=== PATIENT | male | born 1940 | race Caucasian/White ===

== ENCOUNTER 2017-11-23 00:51 | Inpatient (IN) | payer MEDICARE, OTHER ==
[~2017-11-23] VITALS: Ht 180.3 cm; Wt 80.3 kg
--- NOTE | 2017-11-23 02:15 | NUR ---
GPS ADMISSION NOTE, RECEIVED PATIENT FROM [facility]OM[facility]. PATIENT ARRIVED ON THIS UNIT AT 0215 VIA STRETCHER WITH 2 EMT ESCORTS. PATIENT ADMITTED VOLUNTARY. PATIENT PRESENTS WITH AUDITORY HALLUCINATIONS AND SUICIDAL IDEATIONS TO [facility]. 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 PATIENT STOPPED HIMSELF FROM DOING IT AND WENT TO E.R. UPON FACE TO FACE ASSESSMENT PATIENT IS CURRENTLY LYING IN BED AWAKE, HAS NO S/S OR COMPLAINTS OF PAIN AT THIS TIME. PATIENT IS DISPLAYING NO S/S OF APPARENT DISTRESS. PATIENT BREATHING IS UNLABORED WITH EQUAL RISE AND FALL OF THE CHEST. PATIENT IS ALERT AND ORIENTATED X 3 ON ROOM AIR. PATIENT ASSISTED WITH TURING AND REPOSITIONING Q2HR AND PRN FOR COMFORT AND CIRCULATION. PATIENT HAS NO NEEDS AT THIS TIME. PATIENT IS NOTED TO BEING CALM, DISHEVELED, DISORGANIZED, COOPERATIVE, AND NEEDS REDIRECTION. PATIENT DENIES SUICIDE IDEATIONS AND HOMICIDAL IDEATIONS AT THIS TIME. PATIENT IS UNDER THE PSYCHIATRIC CARE OF DR. ESCUDERO AND THE MEDICAL CARE OF DR ASHLEIGH Faust. PATIENT BELONGINGS WERE INVENTORIED AND CHECKED FOR CONTRABAND. ALL CONTRABAND REMOVED AND STORED IN PATIENT HALLWAY LOCKER. PATIENT ADVANCED DIRECTIVES PREFERENCE, IMMUNIZATIONS QUESTIONER, NECESSARY PAPERWORK, AND SKIN ASSESSMENT COMPLETED. PATIENT ORIENTATED TO ROOM, FLOOR, AND STAFF WITH ALL QUESTIONS ANSWERED. PATIENT EDUCATED ON THE USE OF THE CALL POP. PATIENT BED SIDE RAILS ARE UP X 2 FOR SAFETY. PATIENT BED IS LOCKED, LOW AND I WILL CONTINUE TO MONITOR THIS PATIENT Q 15 MIN WITH THE HELP OF STAFF TO MAINTAIN SAFETY.
[2017-11-23] MEDS ORDERED: MAGNESIUM HYDROXIDE 30 ML UDC PO PRN (02:30)
[2017-11-23] MEDS ORDERED: MAG HYDROX/AL HYDROX/SIMETH 30 ML UDC PO PRN (02:30)
[2017-11-23] MEDS ORDERED: LORAZEPAM 0.5 MG TABLET PO PRN (02:30)
[2017-11-23] MEDS ORDERED: ACETAMINOPHEN 325 MG TABLET PO PRN (02:30)
[2017-11-23] MEDS ORDERED: CEPH-570 PO (04:02)
[2017-11-23] MEDS ORDERED: CLOP75TA15 PO (04:03)
[2017-11-23] MEDS ORDERED: PHEN-894 PO (04:03)
[2017-11-23] MEDS ORDERED: MIRT15TA PO (04:04)
[2017-11-23] MEDS ORDERED: LISI-603 PO (04:06)
[2017-11-23] MEDS ORDERED: OXYC-133 PO (04:06)
[2017-11-23] MEDS ORDERED: METF-442 PO (04:08)
[2017-11-23] MEDS ORDERED: TAMS0.4C34 PO (04:09)
[2017-11-23] MEDS ORDERED: PANT40TA2 PO (04:10)
[2017-11-23] MEDS ORDERED: BACL10TA PO (04:11)
[2017-11-23] MEDS ORDERED: METO-356 PO (04:11)
[2017-11-23] MEDS ORDERED: INSU100V7 SQ (04:12)
[2017-11-23] MEDS ORDERED: DULO60CA45 PO (04:13)
[2017-11-23] MEDS ORDERED: CHOL200026 PO (04:14)
[2017-11-23] MEDS ORDERED: ATOR40TA PO (04:15)
[2017-11-23] MEDS ORDERED: FINA5TAB11 PO (04:16)
[2017-11-23] MEDS ORDERED: AMLO10TA4 PO (04:17)
[2017-11-23] MEDS ORDERED: DEXTROSE 50%-WATER 50 ML DISP.SYRIN IV PRN (05:00)
[2017-11-23 08:00] VITALS: BP 162/69
[2017-11-23 08:11] LABS: ALANINE AMINOTRANSFERASE 11 U/L (12-78); ALBUMIN 2.7 g/dL (3.4-5.0); ALKALINE PHOSPHATASE 103 U/L (46-116); ASPARTATE AMINOTRANSFERASE 13 U/L (15-37); BILIRUBIN,TOTAL 0.3 mg/dL (0.2-1.0); CALCIUM, SERUM 8.2 mg/dL (8.5-10.1); CARBON DIOXIDE 27 mmol/L (21-32); CHLORIDE 105 mmol/L (98-107); CREATININE 1.1 mg/dL (0.6-1.3); GLUCOSE 235 mg/dL (74-106); POTASSIUM 4.5 mmol/L (3.5-5.1); SODIUM SERUM 138 mmol/L (136-145); TOTAL PROTEIN, SERUM 6.2 g/dL (6.4-8.2); UREA NITROGEN, BLOOD 18 mg/dL (7-18)
[2017-11-23] MEDS: BLOOD SUGAR DIAGNOSTIC 1 EACH STRIP IN SCH ×4 (08:30→22:34)
[2017-11-23] MEDS: NICOTINE PATCH (21MG) 21 MG PATCH.TD24 TD SCH (08:31)
[2017-11-23] MEDS: INSULIN REGULAR, HUMAN 100 UNIT/ML 3 ML VIAL SQ PRN ×4 (08:40→22:36)
[2017-11-23 08:46] LABS: APPEARANCE,URINE CLOUDY (CLEAR); BILIRUBIN,URINE NEGATIVE (NEGATIVE); BLOOD, URINE 1+ Ery/uL (NEGATIVE); COLOR,URINE YELLOW (YELLOW); KETONES,URINE NEGATIVE (NEGATIVE); LEUKOCYTE ESTERASE ,URINE 2+ (NEGATIVE); NITRITE, URINE POSITIVE (NEGATIVE); PROTEIN,URINE 2+ mg/dl (NEGATIVE); UGLUCOSE 2+ mg/dL (NEGATIVE); UROBILINOGEN,URINE 0.2 EU/dL (0.2)
[2017-11-23 08:52] LABS: BACTERIA,URINE Few /HPF (None Seen); SQUAMOUS EPITHELIAL CELL,UR Few /HPF (None Seen); WBC,URINE TOO NUMEROUS TO COUN /HPF (0-3)
[2017-11-23 10:58] LABS: BASOPHILS # (AUTO) 0.1 /CMM (0.0-0.2); BASOPHILS % (AUTO) 0.6 % (0.0-2.0); EOSINOPHILS % (AUTO) 6.2 % (0.0-6.0); HEMATOCRIT 33 % (39-51); HEMOGLOBIN 10.6 g/dL (13.5-17.5); LYMPHOCYTES # (AUTO) 1.4 /CMM (0.8-4.8); LYMPHOCYTES % (AUTO) 17.6 % (20.0-44.0); MEAN CORPUSCULAR HGB CONC 32 g/dl (31.0-36.0); MEAN CORPUSCULAR VOLUME 92 fL (80-96); MONOCYTES # (AUTO) 0.6 /CMM (0.1-1.30); MONOCYTES % (AUTO) 7.1 % (2.0-12.0); NEUTROPHILS # (AUTO) 5.5 /CMM (1.8-8.9); NEUTROPHILS % (AUTO) 68.5 % (43.0-81.0); PLATELET COUNT (AUTO) 388 /CMM (150-450); RED BLOOD CELL COUNT(AUTO) 3.56 MIL/uL (4.5-6.0); WHITE BLOOD COUNT (AUTO) 8.1 K/uL (4.3-11.0)
--- NOTE | 2017-11-23 11:00 | NUR ---
GPS RN NOTE: ALEX WHITE NOTIFIED OF PT LABS, VS ,URINE POSITIVE FOR UTI, TO RECONCILED HOME MEDICATIONS.
[2017-11-23] MEDS: CIPROFLOXACIN HCL 500 MG TABLET PO SCH ×2 (11:29→21:35)
--- NOTE | 2017-11-23 12:56 | NUR ---
INITIAL DISCHARGE PLAN: Patient wishes to be discharged to a SNF. SW will help form a safe and proper discharge in collaboration with pt and MD.
[2017-11-23] MEDS: BENZTROPINE MESYLATE (1 MG) 1 MG TABLET PO SCH ×2 (13:45→16:01)
[2017-11-23] MEDS: risperiDONE 1 MG TABLET PO SCH ×2 (13:45→16:01)
[2017-11-23 16:00] VITALS: BP 140/72
--- NOTE | 2017-11-23 16:50 | NUR ---
GPS RN NOTE: NP. JOHNSON WAS NOTIFIED TO RECONCILED HOME MEDICATIONS WITCH SHE AGREED TO DO I.
--- NOTE | 2017-11-23 18:25 | NUR ---
RN-CO: Notified Danya Barron [employer] to reconcile home medications.
[2017-11-23] MEDS: METFORMIN 500 MG TABLET PO SCH (19:43)
[2017-11-23 19:46] VITALS: BP 157/76
[2017-11-23] MEDS: INSULIN GLARGINE, 100 UNIT/ML CARTRIDGE SQ SCH (22:00)
[2017-11-23 22:30] VITALS: BP 132/74
[2017-11-24 07:21] LABS: BASOPHILS % (AUTO) 0.6 % (0.0-2.0); EOSINOPHILS % (AUTO) 5.6 % (0.0-6.0); HEMATOCRIT 32 % (39-51); HEMOGLOBIN 10.7 g/dL (13.5-17.5); LYMPHOCYTES # (AUTO) 1.3 /CMM (0.8-4.8); LYMPHOCYTES % (AUTO) 17.5 % (20.0-44.0); MEAN CORPUSCULAR HGB CONC 33 g/dl (31.0-36.0); MEAN CORPUSCULAR VOLUME 92 fL (80-96); MONOCYTES # (AUTO) 0.5 /CMM (0.1-1.30); MONOCYTES % (AUTO) 7.1 % (2.0-12.0); NEUTROPHILS % (AUTO) 69.2 % (43.0-81.0); PLATELET COUNT (AUTO) 375 /CMM (150-450); RDW COEFFICIENT OF VARIATION 14.6 (11.5-15.0); WHITE BLOOD COUNT (AUTO) 7.2 K/uL (4.3-11.0)
[2017-11-24 07:30] LABS: CALCIUM, SERUM 8.4 mg/dL (8.5-10.1); CARBON DIOXIDE 29 mmol/L (21-32); CHLORIDE 105 mmol/L (98-107); CREATININE 1.1 mg/dL (0.6-1.3); GLUCOSE 279 mg/dL (74-106); MAGNESIUM 1.7 mg/dL (1.8-2.4); PHOSPHORUS 3.2 mg/dL (2.5-4.9); POTASSIUM 4.6 mmol/L (3.5-5.1); SODIUM SERUM 141 mmol/L (136-145); UREA NITROGEN, BLOOD 16 mg/dL (7-18)
[2017-11-24 07:31] LABS: CHOLESTEROL 175 mg/dL (<200); HDL CHOLESTEROL 39 mg/dL (40-60); LDL 100 mg/dL (0-99); TRIGLYCERIDES 277 mg/dL (30-150)
[2017-11-24 08:00] VITALS: BP 144/73
[2017-11-24] MEDS: risperiDONE 1 MG TABLET PO SCH ×2 (08:44→17:13)
[2017-11-24] MEDS: METFORMIN 500 MG TABLET PO SCH ×2 (08:44→17:12)
[2017-11-24] MEDS: PANTOPRAZOLE 40 MG TABLET.DR PO SCH (08:44)
[2017-11-24] MEDS: BENZTROPINE MESYLATE (1 MG) 1 MG TABLET PO SCH ×2 (08:44→17:13)
[2017-11-24] MEDS: INSULIN REGULAR, HUMAN 100 UNIT/ML 3 ML VIAL SQ PRN ×3 (08:44→21:22)
[2017-11-24] MEDS: CIPROFLOXACIN HCL 500 MG TABLET PO SCH ×2 (08:44→20:36)
[2017-11-24] MEDS: NICOTINE PATCH (21MG) 21 MG PATCH.TD24 TD SCH (08:45)
[2017-11-24] MEDS: BLOOD SUGAR DIAGNOSTIC 1 EACH STRIP IN SCH ×4 (08:46→21:17)
[2017-11-24] MEDS: SERTRALINE HCL 25 MG TABLET PO SCH (08:50)
[2017-11-24] MEDS: CHOLECALCIFEROL 1,000 UNIT TABLET (VIT D3) PO SCH (08:51)
[2017-11-24] MEDS: BACLOFEN (10 MG) 10 MG TABLET PO SCH ×3 (08:51→17:12)
[2017-11-24] MEDS: FINASTERIDE (5 MG) 5 MG TABLET PO SCH (08:51)
[2017-11-24] MEDS: LISINOPRIL (20MG) 20 MG TABLET PO SCH (08:51)
[2017-11-24] MEDS: CLOPIDOGREL BISULFATE 75 MG TABLET PO SCH (08:51)
[2017-11-24] MEDS: METOPROLOL SUCCINATE 25 MG TAB.SR.24H PO SCH (08:52)
[2017-11-24] MEDS: AMLODIPINE BESYLATE 10 MG TABLET PO SCH (08:52)
[2017-11-24] MEDS: TAMSULOSIN 0.4 MG CAP.SR.24H PO SCH (09:04)
[2017-11-24] MEDS: ATORVASTATIN 40 MG TABLET PO SCH (09:04)
[2017-11-24] MEDS ORDERED: MAGNESIUM OXIDE 400 MG TABLET PO ONE ×2 (09:30→12:30)
[2017-11-24 16:23] VITALS: BP 101/55
[2017-11-24 20:00] VITALS: BP 115/67
--- NOTE | 2017-11-24 20:35 | NUR ---
OFFERED SLEEPING PILL, TEMAZEPAM 7.5 MG CAP REFUSED.
[2017-11-24] MEDS: TEMAZEPAM 7.5 MG CAPSULE PO PRN (20:36)
--- NOTE | 2017-11-24 20:36 | NUR ---
TEMAZEPAM 7.5 MG CAP 1 PO GIVEN FOR SLEEP. Addendum: 11/25/17 at 0623 by BELKIS LAKE RN PATIENT DID NOT TAKE TEMAZEPAM 7.5 MG. OFFERED 2X. WASTED.
--- NOTE | 2017-11-24 21:18 | NUR ---
ACCUCHECK = 195 MG/DL, 3 UNITS REG. INSULIN SC ADMINISTERED. OFFERED HS SNACKS, ORANGE JUICE AND SANDWICH.
[2017-11-24] MEDS: INSULIN GLARGINE, 100 UNIT/ML CARTRIDGE SQ SCH (22:00)
--- NOTE | 2017-11-24 22:28 | NUR ---
PATIENT REFUSED TO HAVE SNACKS, ACCUCHECK 195 MG/DL, LANTUS 30 UNITS NOT GIVEN.
[2017-11-25 06:44] LABS: CALCIUM, SERUM 8.6 mg/dL (8.5-10.1); CARBON DIOXIDE 28 mmol/L (21-32); CHLORIDE 105 mmol/L (98-107); CREATININE 1.6 mg/dL (0.6-1.3); GLUCOSE 217 mg/dL (74-106); MAGNESIUM 1.8 mg/dL (1.8-2.4); POTASSIUM 4.6 mmol/L (3.5-5.1); SODIUM SERUM 141 mmol/L (136-145); UREA NITROGEN, BLOOD 22 mg/dL (7-18)
[2017-11-25 08:00] VITALS: BP 130/67
[2017-11-25] MEDS: NICOTINE PATCH (21MG) 21 MG PATCH.TD24 TD SCH (09:00)
[2017-11-25] MEDS: BLOOD SUGAR DIAGNOSTIC 1 EACH STRIP IN SCH ×4 (09:27→21:06)
[2017-11-25] MEDS: CLOPIDOGREL BISULFATE 75 MG TABLET PO SCH (09:28)
[2017-11-25] MEDS: CHOLECALCIFEROL 1,000 UNIT TABLET (VIT D3) PO SCH (09:28)
[2017-11-25] MEDS: BENZTROPINE MESYLATE (1 MG) 1 MG TABLET PO SCH ×2 (09:28→18:01)
[2017-11-25] MEDS: FINASTERIDE (5 MG) 5 MG TABLET PO SCH (09:28)
[2017-11-25] MEDS: TAMSULOSIN 0.4 MG CAP.SR.24H PO SCH (09:28)
[2017-11-25] MEDS: ATORVASTATIN 40 MG TABLET PO SCH (09:28)
[2017-11-25] MEDS: BACLOFEN (10 MG) 10 MG TABLET PO SCH ×3 (09:28→18:01)
[2017-11-25] MEDS: AMLODIPINE BESYLATE 10 MG TABLET PO SCH (09:28)
[2017-11-25] MEDS: SERTRALINE HCL 25 MG TABLET PO SCH (09:29)
[2017-11-25] MEDS: PANTOPRAZOLE 40 MG TABLET.DR PO SCH (09:29)
[2017-11-25] MEDS: LISINOPRIL (20MG) 20 MG TABLET PO SCH (09:29)
[2017-11-25] MEDS: CIPROFLOXACIN HCL 500 MG TABLET PO SCH ×2 (09:29→21:06)
[2017-11-25] MEDS: risperiDONE 1 MG TABLET PO SCH ×2 (09:29→18:00)
[2017-11-25] MEDS: METFORMIN 500 MG TABLET PO SCH ×2 (09:33→18:00)
[2017-11-25] MEDS: METOPROLOL SUCCINATE 25 MG TAB.SR.24H PO SCH (09:35)
[2017-11-25] MEDS: INSULIN REGULAR, HUMAN 100 UNIT/ML 3 ML VIAL SQ PRN ×4 (09:39→21:10)
--- NOTE | 2017-11-25 11:53 | NUR ---
AKIKO faxed SNF referral to pricing coordinator Kathe at [facility] Address: [address] [place] [address] for review.
--- NOTE | 2017-11-25 14:29 | NUR ---
skill training program coordinator Meche at [facility] Address: [address] [place] [address] , contacted SW stated pt has been accepted to their facility.
[2017-11-25 15:58] VITALS: BP 121/63
[2017-11-25] MEDS ORDERED: oxyCODONE/APAP (5/325 MG) 1 UDTAB TABLET PO PRN ×2 (17:30)
[2017-11-25] MEDS: GABAPENTIN 300 MG CAPSULE PO SCH (18:02)
[2017-11-25 20:00] VITALS: BP 108/61
--- NOTE | 2017-11-25 21:07 | NUR ---
ACCUCHECK 152 MG/DL,
--- NOTE | 2017-11-25 21:11 | NUR ---
2 UNITS REG. INSULIN SC ADMINISTERED, BLOOD SUGAR OF 152 MG/DL. HS SNACKS GIVEN. APPLE JUICE 180 ML PO.
[2017-11-25] MEDS: INSULIN GLARGINE, 100 UNIT/ML CARTRIDGE SQ SCH (21:14)
--- NOTE | 2017-11-25 21:15 | NUR ---
LANTUS 30 UNITS NOT ADMINISTERED, BLOOD SUGAR = 152 MG/DL. REFUSWED SANDWICH, HAD ORANGE JUICE, DRANK 50 ML ONLY OUT OF 180 ML.
[2017-11-26 08:00] VITALS: BP 104/60
[2017-11-26] MEDS: BLOOD SUGAR DIAGNOSTIC 1 EACH STRIP IN SCH ×4 (08:15→21:07)
[2017-11-26] MEDS: AMLODIPINE BESYLATE 10 MG TABLET PO SCH (09:00)
[2017-11-26] MEDS: METOPROLOL SUCCINATE 25 MG TAB.SR.24H PO SCH (09:00)
[2017-11-26] MEDS: LISINOPRIL (20MG) 20 MG TABLET PO SCH (09:00)
--- NOTE | 2017-11-26 09:00 | NUR ---
INSULIN REFUSED AFTER ACCUCHECK. OFFERED 3 TIMES. PATIENT SAID HE WAS TOO TIRED.
[2017-11-26] MEDS: TAMSULOSIN 0.4 MG CAP.SR.24H PO SCH (09:19)
[2017-11-26] MEDS: SERTRALINE HCL 25 MG TABLET PO SCH (09:19)
[2017-11-26] MEDS: NICOTINE PATCH (21MG) 21 MG PATCH.TD24 TD SCH (09:19)
[2017-11-26] MEDS: PANTOPRAZOLE 40 MG TABLET.DR PO SCH (09:19)
[2017-11-26] MEDS: BENZTROPINE MESYLATE (1 MG) 1 MG TABLET PO SCH ×2 (09:19→17:11)
[2017-11-26] MEDS: ATORVASTATIN 40 MG TABLET PO SCH (09:19)
[2017-11-26] MEDS: FINASTERIDE (5 MG) 5 MG TABLET PO SCH (09:19)
[2017-11-26] MEDS: CLOPIDOGREL BISULFATE 75 MG TABLET PO SCH (09:19)
[2017-11-26] MEDS: GABAPENTIN 300 MG CAPSULE PO SCH ×3 (09:19→17:11)
[2017-11-26] MEDS: risperiDONE 1 MG TABLET PO SCH ×2 (09:19→17:11)
[2017-11-26] MEDS: METFORMIN 500 MG TABLET PO SCH ×2 (09:19→17:11)
[2017-11-26] MEDS: CIPROFLOXACIN HCL 500 MG TABLET PO SCH ×2 (09:19→21:07)
[2017-11-26] MEDS: BACLOFEN (10 MG) 10 MG TABLET PO SCH ×3 (09:19→17:11)
[2017-11-26] MEDS: CHOLECALCIFEROL 1,000 UNIT TABLET (VIT D3) PO SCH (09:20)
[2017-11-26 15:59] VITALS: BP 121/52
[2017-11-26] MEDS: INSULIN REGULAR, HUMAN 100 UNIT/ML 3 ML VIAL SQ PRN ×2 (17:39→21:09)
[2017-11-26 20:00] VITALS: BP 134/68
[2017-11-26] MEDS: TEMAZEPAM 7.5 MG CAPSULE PO PRN (21:07)
[2017-11-26] MEDS: INSULIN GLARGINE, 100 UNIT/ML CARTRIDGE SQ SCH (21:08)
[2017-11-27 08:19] VITALS: BP 120/77
[2017-11-27] MEDS: FINASTERIDE (5 MG) 5 MG TABLET PO SCH (08:54)
[2017-11-27] MEDS: GABAPENTIN 300 MG CAPSULE PO SCH ×3 (08:54→17:52)
[2017-11-27] MEDS: CLOPIDOGREL BISULFATE 75 MG TABLET PO SCH (08:54)
[2017-11-27] MEDS: TAMSULOSIN 0.4 MG CAP.SR.24H PO SCH (08:54)
[2017-11-27] MEDS: BLOOD SUGAR DIAGNOSTIC 1 EACH STRIP IN SCH ×4 (08:54→21:19)
[2017-11-27] MEDS: risperiDONE 1 MG TABLET PO SCH ×2 (08:54→17:52)
[2017-11-27] MEDS: METFORMIN 500 MG TABLET PO SCH ×2 (08:55→17:53)
[2017-11-27] MEDS: CIPROFLOXACIN HCL 500 MG TABLET PO SCH ×2 (08:55→21:22)
[2017-11-27] MEDS: BACLOFEN (10 MG) 10 MG TABLET PO SCH ×3 (08:55→17:52)
[2017-11-27] MEDS: SERTRALINE HCL 25 MG TABLET PO SCH (08:55)
[2017-11-27] MEDS: ATORVASTATIN 40 MG TABLET PO SCH (08:55)
[2017-11-27] MEDS: CHOLECALCIFEROL 1,000 UNIT TABLET (VIT D3) PO SCH (08:55)
[2017-11-27] MEDS: BENZTROPINE MESYLATE (1 MG) 1 MG TABLET PO SCH ×2 (08:55→17:53)
[2017-11-27] MEDS: METOPROLOL SUCCINATE 25 MG TAB.SR.24H PO SCH (08:56)
[2017-11-27] MEDS: NICOTINE PATCH (21MG) 21 MG PATCH.TD24 TD SCH (08:57)
[2017-11-27] MEDS: PANTOPRAZOLE 40 MG TABLET.DR PO SCH (08:57)
[2017-11-27] MEDS: AMLODIPINE BESYLATE 10 MG TABLET PO SCH (08:59)
[2017-11-27 11:07] LABS: BASOPHILS % (AUTO) 0.6 % (0.0-2.0); EOSINOPHILS % (AUTO) 6.2 % (0.0-6.0); HEMATOCRIT 31 % (39-51); HEMOGLOBIN 10.2 g/dL (13.5-17.5); LYMPHOCYTES # (AUTO) 1.4 /CMM (0.8-4.8); LYMPHOCYTES % (AUTO) 21.8 % (20.0-44.0); MEAN CORPUSCULAR HGB CONC 33 g/dl (31.0-36.0); MEAN CORPUSCULAR VOLUME 93 fL (80-96); MONOCYTES # (AUTO) 0.5 /CMM (0.1-1.30); MONOCYTES % (AUTO) 7.5 % (2.0-12.0); NEUTROPHILS # (AUTO) 4.1 /CMM (1.8-8.9); NEUTROPHILS % (AUTO) 63.9 % (43.0-81.0); PLATELET COUNT (AUTO) 337 /CMM (150-450); RED BLOOD CELL COUNT(AUTO) 3.37 MIL/uL (4.5-6.0); WHITE BLOOD COUNT (AUTO) 6.4 K/uL (4.3-11.0)
[2017-11-27 11:12] LABS: CARBON DIOXIDE 27 mmol/L (21-32); CHLORIDE 108 mmol/L (98-107); CREATININE 1.3 mg/dL (0.6-1.3); GLUCOSE 101 mg/dL (74-106); MAGNESIUM 1.8 mg/dL (1.8-2.4); PHOSPHORUS 4.5 mg/dL (2.5-4.9); POTASSIUM 4.8 mmol/L (3.5-5.1); SODIUM SERUM 142 mmol/L (136-145); UREA NITROGEN, BLOOD 33 mg/dL (7-18)
[2017-11-27] MEDS: INSULIN REGULAR, HUMAN 100 UNIT/ML 3 ML VIAL SQ PRN (12:35)
[2017-11-27 16:00] VITALS: BP 117/67
[2017-11-27 20:00] VITALS: BP 133/65
[2017-11-27] MEDS: INSULIN GLARGINE, 100 UNIT/ML CARTRIDGE SQ SCH (21:20)
--- NOTE | 2017-11-27 21:24 | NUR ---
ACCUCHECK 93 MG/DL, NO INSULIN DUE AT THIS TIME. ORANGE JUICE 220 ML PO GIVEN.
[2017-11-28 08:00] VITALS: BP 137/65
[2017-11-28] MEDS: CIPROFLOXACIN HCL 500 MG TABLET PO SCH ×2 (08:23→21:44)
[2017-11-28] MEDS: ATORVASTATIN 40 MG TABLET PO SCH (08:23)
[2017-11-28] MEDS: BACLOFEN (10 MG) 10 MG TABLET PO SCH ×3 (08:23→16:28)
[2017-11-28] MEDS: FINASTERIDE (5 MG) 5 MG TABLET PO SCH (08:23)
[2017-11-28] MEDS: AMLODIPINE BESYLATE 10 MG TABLET PO SCH (08:23)
[2017-11-28] MEDS: TAMSULOSIN 0.4 MG CAP.SR.24H PO SCH (08:23)
[2017-11-28] MEDS: PANTOPRAZOLE 40 MG TABLET.DR PO SCH (08:23)
[2017-11-28] MEDS: risperiDONE 1 MG TABLET PO SCH ×2 (08:23→16:28)
[2017-11-28] MEDS: NICOTINE PATCH (21MG) 21 MG PATCH.TD24 TD SCH (08:23)
[2017-11-28] MEDS: METOPROLOL SUCCINATE 25 MG TAB.SR.24H PO SCH (08:24)
[2017-11-28] MEDS: METFORMIN 500 MG TABLET PO SCH ×2 (08:24→16:28)
[2017-11-28] MEDS: BENZTROPINE MESYLATE (1 MG) 1 MG TABLET PO SCH ×2 (08:24→16:28)
[2017-11-28] MEDS: CHOLECALCIFEROL 1,000 UNIT TABLET (VIT D3) PO SCH (08:24)
[2017-11-28] MEDS: SERTRALINE HCL 25 MG TABLET PO SCH (08:25)
[2017-11-28] MEDS: GABAPENTIN 300 MG CAPSULE PO SCH (08:25)
[2017-11-28] MEDS: BLOOD SUGAR DIAGNOSTIC 1 EACH STRIP IN SCH ×4 (09:10→21:47)
[2017-11-28] MEDS: CLOPIDOGREL BISULFATE 75 MG TABLET PO SCH (09:12)
--- NOTE | 2017-11-28 10:54 | NUR ---
GPS/RN DISCONTINUED NEURONTIN IN SYSTEM PER DR ESCUDERO.
--- NOTE | 2017-11-28 10:55 | NUR ---
GPS/RN BS 101, NO COVERAGE NEEDED. WILL CONTINUE TO MONITOR.
--- NOTE | 2017-11-28 12:30 | NUR ---
GPS/RN BS 152 2 UNITS REGULAR INSULIN ADMINISTERED WILL CONTINUE TO MONITOR.
[2017-11-28] MEDS: INSULIN REGULAR, HUMAN 100 UNIT/ML 3 ML VIAL SQ PRN ×2 (12:55→17:53)
[2017-11-28 16:00] VITALS: BP 154/73
--- NOTE | 2017-11-28 18:22 | NUR ---
GPS/RN BS 134, 2 UNITS REGULAR INSULIN ADMINISTERED WILL CONTINUE TO MONITOR.
[2017-11-28 20:04] VITALS: BP 114/51
[2017-11-28] MEDS: INSULIN GLARGINE, 100 UNIT/ML CARTRIDGE SQ SCH (21:55)
[2017-11-29 08:11] VITALS: BP 149/67
[2017-11-29] MEDS: METFORMIN 500 MG TABLET PO SCH ×2 (08:53→16:47)
[2017-11-29] MEDS: FINASTERIDE (5 MG) 5 MG TABLET PO SCH (08:53)
[2017-11-29] MEDS: CLOPIDOGREL BISULFATE 75 MG TABLET PO SCH (08:53)
[2017-11-29] MEDS: TAMSULOSIN 0.4 MG CAP.SR.24H PO SCH (08:53)
[2017-11-29] MEDS: NICOTINE PATCH (21MG) 21 MG PATCH.TD24 TD SCH (08:53)
[2017-11-29] MEDS: ATORVASTATIN 40 MG TABLET PO SCH (08:53)
[2017-11-29] MEDS: BENZTROPINE MESYLATE (1 MG) 1 MG TABLET PO SCH ×2 (08:53→16:47)
[2017-11-29] MEDS: PANTOPRAZOLE 40 MG TABLET.DR PO SCH (08:53)
[2017-11-29] MEDS: CIPROFLOXACIN HCL 500 MG TABLET PO SCH ×2 (08:53→20:39)
[2017-11-29] MEDS: BACLOFEN (10 MG) 10 MG TABLET PO SCH ×3 (08:53→16:52)
[2017-11-29] MEDS: CHOLECALCIFEROL 1,000 UNIT TABLET (VIT D3) PO SCH (08:54)
[2017-11-29] MEDS: AMLODIPINE BESYLATE 10 MG TABLET PO SCH (08:54)
[2017-11-29] MEDS: risperiDONE 1 MG TABLET PO SCH ×3 (08:54→16:48)
[2017-11-29] MEDS: BLOOD SUGAR DIAGNOSTIC 1 EACH STRIP IN SCH ×4 (08:54→21:18)
[2017-11-29] MEDS: SERTRALINE HCL 25 MG TABLET PO SCH (08:54)
[2017-11-29] MEDS: METOPROLOL SUCCINATE 25 MG TAB.SR.24H PO SCH (08:55)
[2017-11-29 16:00] VITALS: BP 146/81
[2017-11-29] MEDS: INSULIN REGULAR, HUMAN 100 UNIT/ML 3 ML VIAL SQ PRN ×2 (17:25→21:22)
--- NOTE | 2017-11-29 17:39 | NUR ---
GPS/RN BS 290 6 UNITS REGULAR INSULIN ADMINISTERED WILL CONTINUE TO MONITOR.
[2017-11-29 20:34] VITALS: BP 131/67
[2017-11-29] MEDS: INSULIN GLARGINE, 100 UNIT/ML CARTRIDGE SQ SCH (21:20)
--- NOTE | 2017-11-29 21:24 | NUR ---
ACCUCHECK 204 MG/DL, 4 UNITS REGULAR INSULIN SC ADMINISTERED LANTUS 30 UNITS SC ADMINISTERED, HAD SANDWICH AND JUICE 120 ML. MED COMPLIANT, A/O X3. VERY COOPERTIVE.
[2017-11-30 08:00] VITALS: BP 136/70
[2017-11-30] MEDS: BLOOD SUGAR DIAGNOSTIC 1 EACH STRIP IN SCH ×4 (08:15→22:41)
[2017-11-30] MEDS: INSULIN REGULAR, HUMAN 100 UNIT/ML 3 ML VIAL SQ PRN ×3 (09:28→18:30)
[2017-11-30] MEDS: ATORVASTATIN 40 MG TABLET PO SCH (09:34)
[2017-11-30] MEDS: BACLOFEN (10 MG) 10 MG TABLET PO SCH ×3 (09:34→17:28)
[2017-11-30] MEDS: CHOLECALCIFEROL 1,000 UNIT TABLET (VIT D3) PO SCH (09:34)
[2017-11-30] MEDS: CIPROFLOXACIN HCL 500 MG TABLET PO SCH (09:34)
[2017-11-30] MEDS: BENZTROPINE MESYLATE (1 MG) 1 MG TABLET PO SCH ×2 (09:34→17:28)
[2017-11-30] MEDS: TAMSULOSIN 0.4 MG CAP.SR.24H PO SCH (09:34)
[2017-11-30] MEDS: SERTRALINE HCL 25 MG TABLET PO SCH (09:34)
[2017-11-30] MEDS: PANTOPRAZOLE 40 MG TABLET.DR PO SCH (09:34)
[2017-11-30] MEDS: METFORMIN 500 MG TABLET PO SCH ×2 (09:34→17:28)
[2017-11-30] MEDS: METOPROLOL SUCCINATE 25 MG TAB.SR.24H PO SCH (09:34)
[2017-11-30] MEDS: FINASTERIDE (5 MG) 5 MG TABLET PO SCH (09:35)
[2017-11-30] MEDS: CLOPIDOGREL BISULFATE 75 MG TABLET PO SCH (09:35)
[2017-11-30] MEDS: NICOTINE PATCH (21MG) 21 MG PATCH.TD24 TD SCH (09:35)
[2017-11-30] MEDS: risperiDONE 1 MG TABLET PO SCH ×3 (09:35→17:28)
[2017-11-30] MEDS: AMLODIPINE BESYLATE 10 MG TABLET PO SCH (09:35)
[2017-11-30 16:05] VITALS: BP 112/59
[2017-11-30 20:18] VITALS: BP 127/69
[2017-11-30] MEDS: TEMAZEPAM 7.5 MG CAPSULE PO PRN (20:33)
[2017-11-30] MEDS: INSULIN GLARGINE, 100 UNIT/ML CARTRIDGE SQ SCH (22:44)
[2017-12-01] MEDS: BLOOD SUGAR DIAGNOSTIC 1 EACH STRIP IN SCH ×2 (07:40→12:02)
[2017-12-01 08:00] VITALS: BP 125/72
[2017-12-01 08:10] VITALS: BP 125/72
[2017-12-01] MEDS: BACLOFEN (10 MG) 10 MG TABLET PO SCH ×2 (08:19→12:11)
[2017-12-01] MEDS: CHOLECALCIFEROL 1,000 UNIT TABLET (VIT D3) PO SCH (08:19)
[2017-12-01] MEDS: BENZTROPINE MESYLATE (1 MG) 1 MG TABLET PO SCH (08:19)
[2017-12-01] MEDS: NICOTINE PATCH (21MG) 21 MG PATCH.TD24 TD SCH (08:19)
[2017-12-01] MEDS: FINASTERIDE (5 MG) 5 MG TABLET PO SCH (08:19)
[2017-12-01] MEDS: PANTOPRAZOLE 40 MG TABLET.DR PO SCH (08:20)
[2017-12-01] MEDS: SERTRALINE HCL 25 MG TABLET PO SCH (08:20)
[2017-12-01] MEDS: risperiDONE 1 MG TABLET PO SCH ×2 (08:20→12:11)
[2017-12-01] MEDS: CLOPIDOGREL BISULFATE 75 MG TABLET PO SCH (08:20)
[2017-12-01] MEDS: TAMSULOSIN 0.4 MG CAP.SR.24H PO SCH (08:20)
[2017-12-01] MEDS: METFORMIN 500 MG TABLET PO SCH (08:20)
[2017-12-01 08:21] VITALS: BP 125/72
[2017-12-01] MEDS: METOPROLOL SUCCINATE 25 MG TAB.SR.24H PO SCH (08:21)
[2017-12-01] MEDS: AMLODIPINE BESYLATE 10 MG TABLET PO SCH (08:21)
[2017-12-01] MEDS: ATORVASTATIN 40 MG TABLET PO SCH (08:21)
--- NOTE | 2017-12-01 08:49 | NUR ---
DR. ESCUDERO GAVE AN ORDER TO D/C TO [facility] AND TO FOLLOW UP WITH PSYCH AND MEDICAL DOCTORS AND TO CONTINUE SAME MEDS INCLUDING PRN.
[2017-12-01] MEDS: INSULIN REGULAR, HUMAN 100 UNIT/ML 3 ML VIAL SQ PRN (12:05)
--- NOTE | 2017-12-01 13:25 | NUR ---
GPS FITNESS FLOOR ATTENDANT NOTE PT DISCHARGED TO [facility] IN STABLE CONDITION VIA GURNEY ACCOMPANIED BY EMT PERSONNEL. PT IS A/O X3, AFEBRILE. PT DENIES SI/HI. PT STATES HE STABLE AND HAS NOT HAD ANY HALLUCINATIONS. RESPIRATIONS ARE EVEN AND UNLABORED, NOT IN ANY ACUTE DISTRESS NOTED. PT DENIES ANY PAIN AT THIS TIME, NO C/O SOB, N/V. NO IV ACCESS, ID BAND REMOVED. ABDOMEN IS SOFT AND NONDISTENDED. BOWEL SOUNDS ARE PRESENT IN ALL 4 QUADRANTS UPON AUSCULTATION. DENIES ANY BLADDER DISCOMFORT. ALL BELONGINGS SENT WITH PT. EXPLAINED DISCHARGE PAPERWORK TO PT WITH VERBAL AND WRITTEN AGREEMENT. PT LEFT IN STABLE CONDITION.
--- NOTE | 2017-12-01 14:00 | NUR ---
DISCHARGE NOTE: Pt was discharged at 1:00pm to [facility] ([facility]: [address] [place] [address] . via [facility] trip #[id number]. No family to notify. Pts mood was pleasant with congruent affect. Pt denied visual/auditory hallucinations and denied suicidal/homicidal ideations. Pt will be under the care of Psychiatrist: Dr. Celeste David [address], [place] [address] [phone] and [place]: Dr. Andrew Cruz Address: [address], [place] [address] . The multidisciplinary exitcare form was done, printed, signed, and given to the patient. Addendum: 12/01/17 at 1410 by CHIKA WHARTON For smoking cessation, patient was referred to the [employer] or [employer] [id number]. Pt will also participate in a telephone meeting with [employer] on Tuesday12/02/17 at 8:00am [phone]
== END 2017-12-01 13:25 | DRG 885 ==
LOC: GPS 01:45
PROVIDERS: ADMIT Psychiatry & Neurology Psychosomatic Medicine; ATTEND Psychiatry & Neurology Psychosomatic Medicine
DX: F20.9 Schizophrenia, unspecified (principal); N17.0 Acute kidney failure with tubular necrosis; E11.65 Type 2 diabetes mellitus with hyperglycemia; E44.0 Moderate protein-calorie malnutrition; N39.0 Urinary tract infection, site not specified; F29 Unspecified psychosis not due to a substance or known physiological condition; I10 Essential (primary) hypertension; F41.9 Anxiety disorder, unspecified; E78.5 Hyperlipidemia, unspecified; D63.8 Anemia in other chronic diseases classified elsewhere; G89.29 Other chronic pain; M47.26 Other spondylosis with radiculopathy, lumbar region; B96.89 Other specified bacterial agents as the cause of diseases classified elsewhere; Z79.891 Long term (current) use of opiate analgesic; Z59.0 Homelessness
CPT/HCPCS: 36415; 80048-TC; 80053-TC; 80061-TC; 81000-TC; 82962-TC; 83735-TC; 84100-TC; 85025-TC; 87081-TC; 87086-TC; J1815